=== PATIENT | female | born 1945 | race Caucasian/White ===

== ENCOUNTER 2019-05-10 08:46 | Day surgery (SDC) | payer MEDICARE, BC ==
[~2019-05-10] VITALS: Ht 180.3 cm; Wt 79.7 kg
[~2019-05-10 08:46] MED LIST: Adult Low Dose81 MG PO; BIOTIN5000 MCG PO; Bacid1 EACH PO; CELE100 PO; CETI5 PO; CLAR250 PO; CLIN300 PO; CYCL10 PO; Calcium + Vita1 EACH PO; ELOCON15 GM TOP; ERGO50000 PO; FENO145 PO; FISH OIL CONC1000 MG PO; FISH1000 PO; Flonase 0.05% N16 GM; GLIM2 PO; GLIM4 PO; HYDCHL12.5 PO; HYDR1TAB94 PO; LOSA50 PO; LOSARTAN POTAS100 MG PO; METF500C PO; MICROZIDE12.5 MG PO; MOME.1TC TOP; Multiple Vitam1 EAC1 PO; NEBI5 PO; NIAC250ER PO; NIACIN FLUSH-F400 MG PO; NYST100P TOP; PIOG15 PO; PRED10 PO; PROM25S PR; RANI150 PO; SALS750 PO; SIMV10 PO; SYNTHROID25 MCG PO; TRULICITY1.5 MG/0.5 SC; VITAMIN D31000 UNIT PO; [UNRECOGNIZED DRUG - REMARK] PO
== END 2019-05-10 11:20 | disposition home or self-care (01) ==
LOC: ORSCSDS 08:46
PROVIDERS: Student in an Organized Health Care Education/Training Program
PROC: 0DB68ZX Excision of Stomach, Via Natural or Artificial Opening Endoscopic, Diagnostic (ICD-10-PCS; principal; 2019-05-10 10:00)
PROC: 0DB58ZX Excision of Esophagus, Via Natural or Artificial Opening Endoscopic, Diagnostic (ICD-10-PCS; principal; 2019-05-10 10:00)
PROC: 0D758ZZ Dilation of Esophagus, Via Natural or Artificial Opening Endoscopic (ICD-10-PCS; principal; 2019-05-10 10:00)
PROC: 0DB48ZX Excision of Esophagogastric Junction, Via Natural or Artificial Opening Endoscopic, Diagnostic (ICD-10-PCS; principal; 2019-05-10 10:00)
DX: R13.10 Dysphagia, unspecified (principal); K31.7 Polyp of stomach and duodenum; K22.2 Esophageal obstruction; K44.9 Diaphragmatic hernia without obstruction or gangrene; K21.9 Gastro-esophageal reflux disease without esophagitis; I10 Essential (primary) hypertension; E11.9 Type 2 diabetes mellitus without complications; E03.9 Hypothyroidism, unspecified; Z79.82 Long term (current) use of aspirin; Z79.84 Long term (current) use of oral hypoglycemic drugs; Z79.899 Other long term (current) drug therapy
CPT/HCPCS: 82947; 88305; 88342; C1726; J2704; J7120

== ENCOUNTER → 2024-03-19 | Outpatient (CLI) | payer MEDICARE, BC | LOC: LAB 18:32 → LAB SHORT 18:32 | DX: L08.9 Local infection of the skin and subcutaneous tissue, unspecified (principal) | CPT/HCPCS: 87070; 87205 ==